=== PATIENT | female | born 1945 | race Caucasian/White ===

== ENCOUNTER 2024-08-06 15:32 | Inpatient (IN) | payer MEDICARE, OTHER ==
[2024-08-06] MEDS ORDERED: fentaNYL 100 MCG/2 ML SDV IVPUSH PRN (16:00)
[2024-08-06] MEDS: Acetaminophen/HYDROcodone 325-5 MG Tab PO PRN (16:15)
[2024-08-06] MEDS ORDERED: Ondansetron 4 MG/2 ML SDV IV PRN (16:22)
[2024-08-06] MEDS ORDERED: Sodium Chloride 0.9% 1,000 ML IV SCH (16:30)
[2024-08-06] MEDS: Insulin Lispro 100 Unit/ML 3 ML KwikPen SUBCUT SCH (17:02)
[2024-08-06] MEDS: Sodium Chloride 0.9% 1,000 ML IV SCH (17:02)
[2024-08-07 05:38] LABS: A/G RATIO 0.6 (1-2); ALBUMIN 2.7 g/dl (3.4-5.0); ANION GAP 15.7 (5-15); BILIRUBIN TOTAL 0.6 mg/dL (0.2-1.0); BUN/CREATININE RATIO 24.3 (14-18); CALCIUM 8.6 mg/dL (8.5-10.1); CREATININE 0.7 mg/dL (0.55-1.02); EST CRCL DRUG DOSING (CG) 60.56 mL/min; POTASSIUM,K 3.7 mEq/L (3.5-5.1); PROTEIN TOTAL,TP 6.9 g/dl (6.4-8.2)
[2024-08-07 05:39] LABS: HEMATOCRIT 29.2 % (37.0-47.0); HEMOGLOBIN 9.9 gm/dl (12.0-16.0); MEAN CORPUSCULAR HEMOGLOBIN 29.6 pg (28.0-32.0); MEAN CORPUSCULAR HGB CONC 33.9 g/dl (32.0-36.0); MEAN CORPUSCULAR VOLUME 87.2 fl (83.0-99.0); MEAN PLATELET VOLUME 9.2 fl (9.4-12.3); PLATELET COUNT,PLT 286 K/mm3 (150-400); RED BLOOD CELL COUNT 3.35 M/mm3 (4.10-5.30); WHITE BLOOD CELL COUNT,WBC 9.78 K/mm3 (3.9-11.3)
[2024-08-07] MEDS: Polyethylene Glycol 3350 Powder 17 GM Packet PO SCH (08:42)
[2024-08-07] MEDS: Insulin Glargine,Human Rec. Analog 100 Units/ML 3 ML Pen SUBCUT SCH (08:45)
[2024-08-07] MEDS ORDERED: fentaNYL 100 MCG/2 ML SDV ONE (10:45)
[2024-08-07] MEDS ORDERED: Ketamine 200 MG/20 ML MDV ONE (10:46)
[2024-08-07] MEDS ORDERED: Propofol 200 MG/20 ML SDV ONE ×2 (10:49→11:56)
[2024-08-07] MEDS ORDERED: Sodium Chloride 0.9% 1,000 ML IV ONE (11:15)
[2024-08-07] MEDS ORDERED: ePHEDrine 50 MG/ML SDV ONE (11:53)
[2024-08-07] MEDS ORDERED: ceFAZolin 2 GM Vial ONE (11:53)
[2024-08-07] MEDS ORDERED: Ondansetron 4 MG/2 ML SDV ONE (12:05)
[2024-08-07] MEDS: Vancomycin 1 GM SDV ONE (12:33)
[2024-08-07] MEDS: Tranexamic Acid 1,000 MG/10 ML Vial ONE (12:33)
[2024-08-07] MEDS: Morphine 8 MG, EPINEPHrine 0.3 MG, Cefuroxime 750 MG, Ketorolac 30 MG, Sodium Chloride ... PRN (12:33)
[2024-08-07] MEDS ORDERED: Ketorolac 30 MG/ML SDV ONE (12:52)
[2024-08-07] MEDS: Lisinopril 10 MG Tab PO SCH (20:58)
[2024-08-08 04:41] LABS: HEMATOCRIT 27.8 % (37.0-47.0); HEMOGLOBIN 9.2 gm/dl (12.0-16.0); MEAN CORPUSCULAR HEMOGLOBIN 29.2 pg (28.0-32.0); MEAN CORPUSCULAR HGB CONC 33.1 g/dl (32.0-36.0); MEAN CORPUSCULAR VOLUME 88.3 fl (83.0-99.0); MEAN PLATELET VOLUME 8.8 fl (9.4-12.3); PLATELET COUNT,PLT 251 K/mm3 (150-400); RED BLOOD CELL COUNT 3.15 M/mm3 (4.10-5.30); WHITE BLOOD CELL COUNT,WBC 9.02 K/mm3 (3.9-11.3)
[2024-08-08 05:21] LABS: A/G RATIO 0.6 (1-2); ALBUMIN 2.5 g/dl (3.4-5.0); BILIRUBIN TOTAL 0.4 mg/dL (0.2-1.0); BUN/CREATININE RATIO 23.8 (14-18); CALCIUM 8.6 mg/dL (8.5-10.1); CREATININE 0.8 mg/dL (0.55-1.02); EST CRCL DRUG DOSING (CG) 52.99 mL/min; PROTEIN TOTAL,TP 6.6 g/dl (6.4-8.2)
[2024-08-08] MEDS: Enoxaparin 40 MG/0.4 ML Syringe SUBCUT SCH (08:40)
[2024-08-08] MEDS: Insulin Glargine,Human Rec. Analog 100 Units/ML 3 ML Pen SUBCUT SCH (08:41)
[2024-08-08] MEDS: Iron Polysaccharides Complex 150 MG Cap PO SCH (08:42)
[2024-08-08] MEDS ORDERED: Calcium Carbonate/Vitamin D3 600 MG-200 Units Tab PO SCH (09:00)
[2024-08-08] MEDS: Acetaminophen 325 MG Tab PO PRN (13:54)
[2024-08-08] MEDS: Calcium Carbonate/Vitamin D3 600 MG-200 Units Tab PO SCH (18:32)
[2024-08-09 04:48] LABS: HEMATOCRIT 28.6 % (37.0-47.0); HEMOGLOBIN 9.4 gm/dl (12.0-16.0); MEAN CORPUSCULAR HEMOGLOBIN 29.3 pg (28.0-32.0); MEAN CORPUSCULAR HGB CONC 32.9 g/dl (32.0-36.0); MEAN CORPUSCULAR VOLUME 89.1 fl (83.0-99.0); MEAN PLATELET VOLUME 8.8 fl (9.4-12.3); PLATELET COUNT,PLT 271 K/mm3 (150-400); RED BLOOD CELL COUNT 3.21 M/mm3 (4.10-5.30); WHITE BLOOD CELL COUNT,WBC 7.79 K/mm3 (3.9-11.3)
[2024-08-09 05:24] LABS: A/G RATIO 0.6 (1-2); ALBUMIN 2.4 g/dl (3.4-5.0); ANION GAP 10.2 (5-15); BILIRUBIN TOTAL 0.4 mg/dL (0.2-1.0); BUN/CREATININE RATIO 18.8 (14-18); CREATININE 0.8 mg/dL (0.55-1.02); EST CRCL DRUG DOSING (CG) 52.99 mL/min; POTASSIUM,K 4.2 mEq/L (3.5-5.1); PROTEIN TOTAL,TP 6.7 g/dl (6.4-8.2)
[2024-08-10 05:34] LABS: HEMATOCRIT 28.4 % (37.0-47.0); HEMOGLOBIN 9.3 gm/dl (12.0-16.0); MEAN CORPUSCULAR HEMOGLOBIN 29.2 pg (28.0-32.0); MEAN CORPUSCULAR HGB CONC 32.7 g/dl (32.0-36.0); MEAN CORPUSCULAR VOLUME 89.3 fl (83.0-99.0); PLATELET COUNT,PLT 288 K/mm3 (150-400); RED BLOOD CELL COUNT 3.18 M/mm3 (4.10-5.30); WHITE BLOOD CELL COUNT,WBC 6.86 K/mm3 (3.9-11.3)
[2024-08-10 05:42] LABS: A/G RATIO 0.6 (1-2); ALBUMIN 2.4 g/dl (3.4-5.0); ANION GAP 12.3 (5-15); BILIRUBIN TOTAL 0.4 mg/dL (0.2-1.0); BUN/CREATININE RATIO 17.8 (14-18); CALCIUM 9.3 mg/dL (8.5-10.1); CREATININE 0.9 mg/dL (0.55-1.02); EST CRCL DRUG DOSING (CG) 47.1 mL/min; POTASSIUM,K 4.3 mEq/L (3.5-5.1); PROTEIN TOTAL,TP 6.8 g/dl (6.4-8.2)
== END 2024-08-12 10:51 | DRG 522 ==
LOC: JD.MS 15:32
PROVIDERS: ADMIT Internal Medicine; ATTEND Student in an Organized Health Care Education/Training Program
PROC: 0SR90JZ Replacement of Right Hip Joint with Synthetic Substitute, Open Approach (ICD-10-PCS; principal; 2024-08-06)
DX: S72.002A Fracture of unspecified part of neck of left femur, initial encounter for closed fracture (principal); E11.40 Type 2 diabetes mellitus with diabetic neuropathy, unspecified; I10 Essential (primary) hypertension; N32.81 Overactive bladder; D50.9 Iron deficiency anemia, unspecified; Z88.0 Allergy status to penicillin; Z88.2 Allergy status to sulfonamides; Z88.8 Allergy status to other drugs, medicaments and biological substances; Z79.4 Long term (current) use of insulin; Z98.49 Cataract extraction status, unspecified eye; Z90.710 Acquired absence of both cervix and uterus; W01.0XXA Fall on same level from slipping, tripping and stumbling without subsequent striking against object, initial encounter
CPT/HCPCS: 01210; 36415; 73501-26-LT; 73501-LT; 80053; 82728; 82947; 83540; 85027; 86850; 86900; 86901; 87641; 94760; 94761; 97110-GP; 97161-GP; 99100; 99231; 99232; 99239; A9270-GY; C1776; J0171; J0690; J0697; J1650; J1815; J1815-GY; J1885; J2270; J2405; J2704; J3010; J3370; J3490; J7030; U0002